=== PATIENT | male | born 1995 | race African-American/Black ===

== ENCOUNTER 2018-08-04 13:40 | Emergency (ER) | payer MEDICAID, OTHER ==
[~2018-08-04] VITALS: Ht 177.8 cm; Wt 72.1 kg
--- NOTE | 2018-08-04 13:55 | NUR ---
DIFFUSE ABDOMINAL PAIN, DIARRHEA, LOSS OF APPETITE SINCE 07/23. PAIN IS 8/10 AND DOES NOT RADIATE. PT IS AOX4, AMBULATORY, VSS, RR EVEN AND UNLABORED. DENIES SOB, DIZZINESS, WEAKNESS, N/V. NO ACUTE DISTRESS NOTED. READY FOR EVAL.
[2018-08-04] MEDS ORDERED: ACETAMINOPHEN ES 500 MG TABLET ONE (14:14)
[2018-08-04 14:21] LABS: BASOPHILS # (AUTO) 0.1 /CMM (0.0-0.2); BASOPHILS % (AUTO) 0.5 % (0.0-2.0); EOSINOPHILS % (AUTO) 1.1 % (0.0-6.0); HEMATOCRIT 45 % (39-51); HEMOGLOBIN 14.8 g/dL (13.5-17.5); LYMPHOCYTES # (AUTO) 2.1 /CMM (0.8-4.8); LYMPHOCYTES % (AUTO) 19.3 % (20.0-44.0); MEAN CORPUSCULAR HGB CONC 33 g/dl (31.0-36.0); MEAN CORPUSCULAR VOLUME 86 fL (80-96); MONOCYTES # (AUTO) 1.2 /CMM (0.1-1.30); MONOCYTES % (AUTO) 11.3 % (2.0-12.0); NEUTROPHILS # (AUTO) 7.2 /CMM (1.8-8.9); NEUTROPHILS % (AUTO) 67.8 % (43.0-81.0); PLATELET COUNT (AUTO) 323 /CMM (150-450); RED BLOOD CELL COUNT(AUTO) 5.21 MIL/uL (4.5-6.0); WHITE BLOOD COUNT (AUTO) 10.7 K/uL (4.3-11.0)
[2018-08-04 14:26] LABS: CALCIUM, SERUM 8.9 mg/dL (8.5-10.1); CREATININE 0.8 mg/dL (0.6-1.3); POTASSIUM 3.5 mmol/L (3.5-5.1)
[2018-08-04] MEDS ORDERED: IV NS 0.9% 1,000 ML BAG IV ONE (14:30)
[2018-08-04] MEDS ORDERED: ACETAMINOPHEN ES 500 MG TABLET PO ONE (14:30)
[2018-08-04 14:33] LABS: ALBUMIN 3.3 g/dL (3.4-5.0); BILIRUBIN,DIRECT 0.1 mg/dL (0.0-0.2); BILIRUBIN,TOTAL 0.2 mg/dL (0.2-1.0); TOTAL PROTEIN, SERUM 7.8 g/dL (6.4-8.2)
--- NOTE | 2018-08-04 14:56 | NUR ---
Marian gann in ED - 08/04/18 at 1458 by MAUDE Patient is resting comfortably in bed with eyes closed. Easily aroused. VSS. WILL CONT TO MONITOR.
--- NOTE | 2018-08-04 14:58 | NUR ---
FIRST LITER IVF COMPLETED. PT ABDOUL WELL. 2ND LITER INFUSING NOW. VSS AND WILL CONT TO MONITOR.
--- NOTE | 2018-08-04 16:05 | NUR ---
IV removed. Catheter intact and site benign. Pressure and 4x4 applied to site. No bleeding noted. Patient discharged to home in stable condition. Written and verbal after care instructions given. Patient verbalizes understanding of instruction.
[2018-08-04 16:14] VITALS: BP 115/79
== END 2018-08-04 16:05 | disposition home or self-care (01) ==
LOC: ER 13:41
DX: R19.7 Diarrhea, unspecified (principal); F12.10 Cannabis abuse, uncomplicated
CPT/HCPCS: 36415; 80048; 80074; 80076; 83690; 85025; 96360; 96361; 99283; A4606; J7030 ×2; Z7610

== ENCOUNTER 2023-05-05 06:39 | Emergency (ER) | payer OTHER ==
[~2023-05-05] VITALS: Ht 180.3 cm; Wt 79.4 kg
[2023-05-05 07:19] VITALS: BP 132/95; TEMP 98.2; O2SAT 97
== END 2023-05-05 07:34 | disposition home or self-care (01) ==
LOC: ER 06:39
DX: R20.2 Paresthesia of skin (principal); Z60.2 Problems related to living alone

== ENCOUNTER 2024-03-06 08:24 | Emergency (ER) | payer OTHER ==
[~2024-03-06] VITALS: Ht 180.3 cm; Wt 86.2 kg
[2024-03-06 09:50] VITALS: BP 142/96; TEMP 98; O2SAT 98
[2024-03-06] MEDS ORDERED: DOXY100C2 PO (10:40)
[2024-03-06] MEDS ORDERED: LIDOCAINE 1% INJ 50 ML MDV IJ ONE (10:43)
[2024-03-06] MEDS ORDERED: CEFTRIAXONE 500 MG VIAL ONE (10:43)
[2024-03-06] MEDS: CEFTRIAXONE 500 MG VIAL IM ONE (10:56)
[2024-03-06 12:27] LABS: APPEARANCE,URINE SLIGHTLY CLOUDY (CLEAR); BILIRUBIN,URINE NEGATIVE (NEGATIVE); BLOOD, URINE TRACE-INTA Ery/uL (NEGATIVE); COLOR,URINE YELLOW (YELLOW); KETONES,URINE NEGATIVE (NEGATIVE); LEUKOCYTE ESTERASE ,URINE 2+ (NEGATIVE); NITRITE, URINE NEGATIVE (NEGATIVE); PROTEIN,URINE NEGATIVE (NEGATIVE); UGLUCOSE NEGATIVE (NEGATIVE)
[2024-03-06 13:10] LABS: ADD URINE CULTURE YES; BACTERIA,URINE 1+ /HPF (None Seen); RBC,URINE 0-2 /HPF (0-2); SQUAMOUS EPITHELIAL CELL,UR None Seen /HPF (None Seen); WBC,URINE 51-80 /HPF (0-3)
[2024-03-09 07:10] LABS: CHLAMYDIA TRACHOMATIS NAA Negative (Negative)
[2024-03-09 08:12] LABS: NEISSERIA GONORRHOEAE NAA Positive (Negative)
== END 2024-03-06 11:01 | disposition home or self-care (01) ==
LOC: ER 08:24
DX: R30.0 Dysuria (principal); R36.9 Urethral discharge, unspecified; Z20.2 Contact with and (suspected) exposure to infections with a predominantly sexual mode of transmission
CPT/HCPCS: 99283; 96372; 87086; 81001; 87491; 87591; J3490; J0696